=== PATIENT | male | born 1985 | race Caucasian/White ===

== ENCOUNTER 2021-12-02 13:58 | Inpatient (IN) | payer SELFPAY ==
[~2021-12-02] VITALS: Ht 180.3 cm; Wt 123.8 kg
[2021-12-02 14:11] VITALS: BP 148/78
[2021-12-02] MEDS ORDERED: NACL 0.9% 1,000 ML IV ONE (14:25)
[2021-12-02] MEDS ORDERED: ONDANSETRON 4 MG/2 ML VIAL IVP ONE ×2 (14:25→17:00)
[2021-12-02] MEDS ORDERED: MORPHINE SULFATE 4 MG/ML SYR IVP ONE ×2 (14:25→16:20)
--- NOTE | 2021-12-02 14:38 | NUR ---
MD Jose Mendez [phone]
--- NOTE | 2021-12-02 15:02 | NUR ---
35 Y/O M BIB SELF C/O SHARP RU ABD PAIN SINCE THIS MORNING. PT ALSO HAD NAUSEA AND DIARRHEA ON AND OFF SINCE TUESDAY. DENIES ANYONE ELSE SICK AT HOME. DENIES TAKING MEDS FOR PAIN. NKA OR PMH
--- NOTE | 2021-12-02 15:04 | NUR ---
LAB AT BEDSIDE.
--- NOTE | 2021-12-02 15:17 | NUR ---
ULTRASOUND AT BEDSIDE.
[2021-12-02 15:27] LABS: ALBUMIN 3.8 g/dL (3.4-5.0); CARBON DIOXIDE 33.1 mmol/L (21-32); CREATININE 0.8 mg/dL (0.6-1.3); POTASSIUM 4.1 mmol/L (3.5-5.1); TOTAL BILIRUBIN 0.8 mg/dL (0.0-1.0)
[2021-12-02 15:37] LABS: BASOPHILS % (AUTO) 0.1 % (0.0-2.0); EOSINOPHILS % (AUTO) 0.2 % (0.0-4.0); HEMATOCRIT 44.2 % (36-52); HEMOGLOBIN 15.6 g/dL (12.0-18.0); LYMPHOCYTES # (AUTO) 0.9 K/uL (2.0-11.5); LYMPHOCYTES % (AUTO) 10.9 % (20.5-51.1); MEAN CORPUSCULAR HEMOGLOBIN 32 pg (27-31); MEAN CORPUSCULAR HGB CONC 35 g/dL (33-37); MEAN CORPUSCULAR VOLUME 90.8 fL (80-94); MONOCYTES # (AUTO) 0.5 K/uL (0.8-1.0); MONOCYTES % (AUTO) 6.1 % (1.7-9.3); NEUTROPHILS # (AUTO) 6.9 K/uL (1.8-7.7); NEUTROPHILS % (AUTO) 82.7 % (42.2-75.2); PLATELET COUNT (AUTO) 171 K/uL (140-450); RED BLOOD CELL COUNT(AUTO) 4.86 MIL/uL (4.20-6.10); RED CELL DISTRIBUTION WIDTH 12.8 % (11.6-13.7); WHITE BLOOD COUNT (AUTO) 8.3 K/uL (4.8-10.8)
[2021-12-02] MEDS ORDERED: HYDROmorphone PFS 2 MG/ML SYR IVP ONE (17:00)
--- NOTE | 2021-12-02 17:45 | NUR ---
MARGARET SWABED AND WALKED TO THE LAB.
[2021-12-02] MEDS ORDERED: NACL 0.9% 1,000 ML IV SCH (18:00)
--- NOTE | 2021-12-02 18:08 | NUR ---
SHILO RIVERA CALLED MARGARET NOT READY, CHRISTIANNE NOT RECEVIVED IN [facility]
[2021-12-02] MEDS ORDERED: MORPHINE SULFATE 2 MG/ML SYR IVP PRN (18:15)
[2021-12-02] MEDS ORDERED: cefTRIAXone 1,000 MG VIAL ONE (18:25)
--- NOTE | 2021-12-02 19:22 | NUR ---
GAVE REPORT TO SONIA LAO.
--- NOTE | 2021-12-02 19:27 | NUR ---
PT IS AWAKE IS ALERT. REPORTS MILD PAIN. ALL NEEDS MET AT THIS TIME.
[2021-12-02] MEDS: MORPHINE SULFATE 4 MG/ML SYR IVP PRN (19:51)
--- NOTE | 2021-12-02 19:52 | NUR ---
PT STATED HE HAD 8/10 ABD PAIN. PT MEDICATED PER ORDERS. ALL NEEDS MET AT THIS TIME.
--- NOTE | 2021-12-02 20:19 | NUR ---
PT STATES PAIN IS 7/10, SAYS THIS IS TOLERABLE FOR HIM.
--- NOTE | 2021-12-02 20:39 | NUR ---
REPORT GIVEN TO SHILO ESCOBAR.
[2021-12-02] MEDS ORDERED: ONDANSETRON 4 MG/2 ML VIAL IVP PRN (20:40)
[2021-12-02] MEDS: LACTATED RINGERS 1,000 ML IV SCH (20:45)
--- NOTE | 2021-12-02 20:45 | NUR ---
Patient will be admitted to care of TIFFANY. Admited to [facility]. Will go to room 111B. Belongings list completed. Report to SHILO ESCOBAR.
[2021-12-02 20:50] VITALS: BP 133/77
--- NOTE | 2021-12-02 20:50 | NUR ---
RECEIVED REPORT FROM ER NURSE. PT AWAKE, ALERT AND ORIENTED. ON ROOM AIR, BREATHING EQUAL AND UNLABORED. SKIN, WARM ,DRY AND INTACT. IV ON L AC G20, INFUSING WELL. PT AMBULATORY, ABLE TO MAKE NEEDS KNOWN. MRSA SWAB DONE. ORIENTED TO ROOM AND CALL LIGHT. ALL PRECAUTIONS IN PLACE. WILL CONTINUE TO MONITOR.
[2021-12-02] MEDS: PIPERACILLIN/TAZOBACTAM 3.375 GM in DEXTROSE 5% 50 ML IV SCH (21:00)
--- NOTE | 2021-12-02 21:30 | NUR ---
SCHEDULED MEDICATION GIVEN. PT TOLERATED WELL. WILL CONTINUE TO MONITOR.
[2021-12-02 21:31] LABS: PROTHROMBIN TIME 9.9 secs (10.8-13.4)
[2021-12-02] MEDS ORDERED: PIPERACILLIN/TAZOBACTAM 3.375 GM VIAL IV ONE (21:37)
[2021-12-03] MEDS: MORPHINE SULFATE 4 MG/ML SYR IVP PRN ×2 (02:07→08:13)
--- NOTE | 2021-12-03 02:10 | NUR ---
PT COMPLAINED 10/10 RUQ PAIN. PRN MORPHINE GIVEN. WILL CONTINUE TO MONITOR.
--- NOTE | 2021-12-03 03:42 | NUR ---
PT ASLEEP. BREATHING EQUAL AND UNLABORED WITH NO DISTRESS NOTED. ALL PRECAUTIONS IN PLACE. WILL CONTINUE TO MONITOR.
[2021-12-03 04:00] VITALS: BP 133/69
[2021-12-03] MEDS ORDERED: PIPERACILLIN/TAZOBACTAM 3.375 GM VIAL IV ONE (04:04)
[2021-12-03] MEDS: PIPERACILLIN/TAZOBACTAM 3.375 GM in DEXTROSE 5% 50 ML IV SCH ×3 (04:36→23:00)
[2021-12-03] MEDS: LACTATED RINGERS 1,000 ML IV SCH ×2 (04:45→12:45)
--- NOTE | 2021-12-03 04:45 | NUR ---
SCHEDULED MEDICATION GIVEN. PT TOLERATED WELL. WILL CONTINUE TO MONITOR.
--- NOTE | 2021-12-03 07:00 | NUR ---
PT IS STABLE.NO ACUTE EVENTS THROUGHOUT THE NIGHT. ALL NEEDS MET. NO S/SX OF DISTRESS AT THIS TIME. NO COMPLAINS OF PAIN. ALL PRECAUTIONS IN PLACE. CALL LIGHT WITHIN REACH. WILL ENDORSE TO AM SHIFT NURSE.
[2021-12-03 07:23] LABS: ANION GAP 8.9 (8-16); CARBON DIOXIDE 28.4 mmol/L (21-32); CREATININE 0.8 mg/dL (0.6-1.3); POTASSIUM 3.3 mmol/L (3.5-5.1)
[2021-12-03 07:36] LABS: BASOPHILS % (AUTO) 0.2 % (0.0-2.0); EOSINOPHILS % (AUTO) 0.5 % (0.0-4.0); HEMATOCRIT 41.2 % (36-52); HEMOGLOBIN 14.8 g/dL (12.0-18.0); LYMPHOCYTES # (AUTO) 1.5 K/uL (2.0-11.5); LYMPHOCYTES % (AUTO) 17.9 % (20.5-51.1); MEAN CORPUSCULAR HEMOGLOBIN 32 pg (27-31); MEAN CORPUSCULAR HGB CONC 36 g/dL (33-37); MEAN CORPUSCULAR VOLUME 90.3 fL (80-94); NEUTROPHILS % (AUTO) 69.4 % (42.2-75.2); PLATELET COUNT (AUTO) 154 K/uL (140-450); RED BLOOD CELL COUNT(AUTO) 4.56 MIL/uL (4.20-6.10); RED CELL DISTRIBUTION WIDTH 12.8 % (11.6-13.7); WHITE BLOOD COUNT (AUTO) 8.6 K/uL (4.8-10.8)
--- NOTE | 2021-12-03 07:55 | NUR ---
RECEIVED PT CARE AND REPORT FROM LUZ LAO. PT IS RESTING IN BED SEMI-FOWLERS, A&OX4. NO VISIBLE S/S OF DISTRESS OR DISCOMFORT. DENIES SOB. COMPLAINS OF PAIN 7/10 IN UPPER RIGHT QUADRANT. WILL MEDICATE ORDERED. CALL LIGHT WITHIN REACH, ALL NEEDS MET AT THIS TIME.
[2021-12-03] MEDS ORDERED: KCL 20 MEQ/WATER INJ PREMIX 200 ML IV SCH (10:00)
--- NOTE | 2021-12-03 10:10 | NUR ---
PATIENT HAS BEEN SCREENED AND CATEGORIZED LOW NUTRITION RISK. PATIENT WILL BE SEEN WITHIN 7 DAYS OF ADMISSION. 12/09/[address]
--- NOTE | 2021-12-03 11:10 | NUR ---
BEGAN TO ADMINISTER K-RIDER. LESS THAN 20 MINUTES BEFORE STARTING OF MED, PT COMPLAINED OF SHARP PAIN AND NUMBNESS IN ARM ONCE MED WAS STARTED. STOPPED K-RIDER ADMINISTRATION. ORDERED K-RIDER WITH LIDOCAINE TO HELP WITH PAIN.
[2021-12-03] MEDS ORDERED: POTASSIUM CHLORIDE 40 MEQ, LIDOCAINE MPF 1% 25 MG in NACL 0.9% 250 ML IV SCH (12:00)
--- NOTE | 2021-12-03 13:42 | NUR ---
DC PLANNING: THE PATIENT ADMITTED WITH C/O RUQ PAIN, H/O GALLSTONES. CT ABDOMEN SHOWS ACUTE CHOLECYSTITIS, PATIENT EVALUATED BY SURGEON, PLAN FOR LAP LON. CM SPOKE WITH THE PATIENT AND HIS AT BEDSIDE AND CONFIRMED HIS ADDRESS AND PHONE NUMBER. THE PATIENT LIVES IN A SINGLE STORY HOUSE WITH HIS AND IS INDEPENDENT IN ALL ACTIVITIES. 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 CM WILL FOLLOW.
[2021-12-03 16:00] VITALS: BP 155/76
[2021-12-03] MEDS ORDERED: DOCUSATE SODIUM 100 MG GELCAP PO PRN (16:10)
[2021-12-03] MEDS ORDERED: MAG SULF 2000 MG/WATER PREMIX 50 ML IV PRN (16:10)
[2021-12-03] MEDS ORDERED: ACETAMINOPHEN 325 MG TAB PO PRN (16:10)
[2021-12-03] MEDS ORDERED: ZOLPIDEM 5 MG TAB PO PRN (16:10)
[2021-12-03] MEDS ORDERED: POTASSIUM CHLORIDE 10 MEQ TABER PO PRN (16:10)
[2021-12-03] MEDS ORDERED: ONDANSETRON 4 MG/2 ML VIAL IM/IVP PRN (16:10)
[2021-12-03] MEDS ORDERED: LORazepam 1 MG TAB PO PRN (16:10)
[2021-12-03 16:46] LABS: PROTHROMBIN TIME 10.4 secs (10.8-13.4)
[2021-12-03 18:01] LABS: APPEARANCE,URINE CLEAR (CLEAR); BILIRUBIN,URINE NEGATIVE (NEGATIVE); BLOOD, URINE NEGATIVE (NEGATIVE); COLOR,URINE YELLOW (YELLOW); LEUKOCYTE ESTERASE ,URINE NEGATIVE (NEGATIVE); NITRITE, URINE NEGATIVE (NEGATIVE); UGLUCOSE NEGATIVE (NEGATIVE)
[2021-12-03 20:34] LABS: BARBITURATE, URINE NEGATIVE ng/ml (NEG <=200); BENZODIAZEPINE, URINE NEGATIVE ng/mL (NEG <=200); CANNABINOID, URINE NEGATIVE ng/mL (NEG <=50); COCAINE, URINE NEGATIVE ng/mL (NEG <=300); OPIATE, URINE POSITIVE ng/mL (NEG <=2000); PHENCYCLIDINE SCREEN,URINE NEGATIVE ng/mL (NEG <=25)
[2021-12-03 22:54] LABS: ALBUMIN 3.2 g/dL (3.4-5.0); ANION GAP 13.8 (8-16); CARBON DIOXIDE 24.6 mmol/L (21-32); CREATININE 0.8 mg/dL (0.6-1.3); POTASSIUM 3.4 mmol/L (3.5-5.1)
[2021-12-04] VITALS: BP 112/60
--- NOTE | 2021-12-04 01:59 | NUR ---
PATIENT ALERT X4 NO C/O OF PAIN WENT TO NUCULAR FOR HYDA SCAN LEFT FLOOR 2044 WAS GIVEN MORPHINE 2 MG IVP AT 2114. PATIENT RETURN TO ROOM AT 2154. PATIENT GIVEN IVPB LATE DO TO NOT IN ROOM. PATIENT IS M/S PATIENT.ON ROOM AIR SAT 99%. LUNGS DIMINISH RECEIVED ROCEPHIN 20940 MG IVPB AT 2200, ZOSYN 3.375 MG AT 2300. L/R INFUSING AT 125 HOUR. IV SITE IN LEFT UPPER ARM PATENT. NO SIGNS OF ACUTE DISTRESS.
[2021-12-04] MEDS: LACTATED RINGERS 1,000 ML IV SCH ×3 (04:45→11:59)
[2021-12-04] MEDS: PIPERACILLIN/TAZOBACTAM 3.375 GM in DEXTROSE 5% 50 ML IV SCH ×3 (05:00→21:00)
[2021-12-04 05:34] LABS: BASOPHILS % (AUTO) 0.3 % (0.0-2.0); EOSINOPHILS # (AUTO) 0.1 K/uL (0-0.4); EOSINOPHILS % (AUTO) 1.2 % (0.0-4.0); HEMATOCRIT 41.5 % (36-52); HEMOGLOBIN 14.7 g/dL (12.0-18.0); LYMPHOCYTES # (AUTO) 1.6 K/uL (2.0-11.5); LYMPHOCYTES % (AUTO) 17.8 % (20.5-51.1); MEAN CORPUSCULAR HEMOGLOBIN 32 pg (27-31); MEAN CORPUSCULAR HGB CONC 36 g/dL (33-37); MEAN CORPUSCULAR VOLUME 89.9 fL (80-94); MONOCYTES # (AUTO) 0.9 K/uL (0.8-1.0); MONOCYTES % (AUTO) 10.3 % (1.7-9.3); NEUTROPHILS # (AUTO) 6.5 K/uL (1.8-7.7); NEUTROPHILS % (AUTO) 70.4 % (42.2-75.2); PLATELET COUNT (AUTO) 171 K/uL (140-450); RED BLOOD CELL COUNT(AUTO) 4.62 MIL/uL (4.20-6.10); RED CELL DISTRIBUTION WIDTH 12.9 % (11.6-13.7); WHITE BLOOD COUNT (AUTO) 9.2 K/uL (4.8-10.8)
[2021-12-04 05:46] LABS: ANION GAP 9.9 (8-16); CARBON DIOXIDE 28.7 mmol/L (21-32); CREATININE 0.8 mg/dL (0.6-1.3); POTASSIUM 3.6 mmol/L (3.5-5.1)
[2021-12-04 06:32] LABS: CHOL/HDL RATIO 3.1 (1-4.5); MAGNESIUM 1.7 mg/dL (1.8-2.4); PHOSPHORUS 2.8 mg/dL (2.5-4.9)
[2021-12-04 07:08] LABS: T4 (THYROXINE) 9.8 ug/dL (4.5-12.0)
--- NOTE | 2021-12-04 07:45 | NUR ---
RECEIVED PT FROM ANKIT LAO. PT A/O X4. ABLE TO MAKE NEEDS KNOWN. NO SOB OR RESPIRATORY DISTRESS. ON RA. LAC #20 WITH LR @ 125 ML/HR. PT OFF TO CHOLECYSTECTOMY VIA BED. NEEDS ALL MET AT THIS TIME. SAFETY MEASURES IN PLACE. WILL CONTINUE TO MONITOR CLOSELY.
[2021-12-04] MEDS ORDERED: BUPIVACAINE-MPF 0.25% 30 ML VIAL INJ ONE (07:49)
[2021-12-04 08:00] VITALS: BP 126/74
[2021-12-04] MEDS ORDERED: PROPOFOL 200 MG/20 ML VIAL IV ONE ×2 (08:16)
[2021-12-04] MEDS ORDERED: SUCCINYLCHOLINE CHLORIDE 200 MG/10 ML VIAL IVP ONE (08:16)
[2021-12-04] MEDS ORDERED: ROCURONIUM 50 MG/5 ML VIAL IV ONE ×2 (08:16)
[2021-12-04] MEDS ORDERED: ONDANSETRON 4 MG/2 ML VIAL ONE (08:45)
[2021-12-04] MEDS ORDERED: KETOROLAC 30 MG/ML VIAL ONE (08:45)
[2021-12-04] MEDS ORDERED: ePHEDrine 50 MG/ML VIAL ONE (08:52)
[2021-12-04] MEDS ORDERED: NEOSTIGMINE 1:1000 10 MG/10 ML VIAL ONE (09:53)
[2021-12-04] MEDS ORDERED: GLYCOPYRROLATE 0.2 MG/ML VIAL ONE ×5 (09:53)
[2021-12-04] MEDS ORDERED: HYDROcodone/APAP 5/325 MG 1 TAB TAB PO PRN (10:05)
[2021-12-04] MEDS ORDERED: HYDROmorphone 1 MG/ML AMP IVP PRN (10:20)
[2021-12-04] MEDS ORDERED: METOCLOPRAMIDE 10 MG/2 ML INJ VIAL IVP PRN (10:20)
[2021-12-04] MEDS ORDERED: LABETALOL 20 MG/4 ML VIAL IVP PRN (10:20)
[2021-12-04] MEDS ORDERED: LACTATED RINGERS 1,000 ML IV SCH (10:20)
[2021-12-04] MEDS ORDERED: hydrALAZINE 20 MG/ML VIAL IVP PRN (10:25)
--- NOTE | 2021-12-04 11:30 | NUR ---
PT BACK FROM SURGERY. PT AWAKE AND ALERT. 4 INCISION SITE NOTED ON ABDOMEN. NO ACTIVE BLEEDING, NO S/S OF INFECTION. SEE EMAR FOR PAIN MEDICATION ADMINISTRATION. FAMILY AT BEDSIDE. NEEDS ALL MET AT THIS TIME. SAFETY MEASURES IN PLACE. WILL CONTINUE TO MONITOR.
[2021-12-04] MEDS: MORPHINE SULFATE 4 MG/ML SYR IVP PRN ×2 (11:31→19:31)
--- NOTE | 2021-12-04 12:30 | NUR ---
MD ORDER TO DISCONTINUE LACTATED RINGERS.
[2021-12-04 16:00] VITALS: BP 128/72
--- NOTE | 2021-12-04 19:24 | NUR ---
PT STABLE, REPORT GIVEN TO NIGHTSHIFT RN FOR CONTINUITY OF CARE.
--- NOTE | 2021-12-04 19:30 | NUR ---
C/O PAIN - BP 128/ 82 , NV 82 , 02 SAT 98 % - FULLY AWAKE - WILL MEDICATE .
--- NOTE | 2021-12-04 22:00 | NUR ---
VOIDED , PER PT HE VOIDED FREELY .
[2021-12-05] VITALS: BP 120/78
--- NOTE | 2021-12-05 00:33 | NUR ---
SLEEPING , NO S/SX OF ACUTE DISTRESS NOTED AT THIS TIME , CALL LIGHT WITHIN REACH .
--- NOTE | 2021-12-05 04:00 | NUR ---
no complain made .
[2021-12-05] MEDS: PIPERACILLIN/TAZOBACTAM 3.375 GM in DEXTROSE 5% 50 ML IV SCH ×3 (05:43→21:42)
[2021-12-05 07:07] LABS: BASOPHILS % (AUTO) 0.1 % (0.0-2.0); EOSINOPHILS % (AUTO) 0.1 % (0.0-4.0); HEMATOCRIT 41.6 % (36-52); HEMOGLOBIN 14.6 g/dL (12.0-18.0); LYMPHOCYTES # (AUTO) 0.7 K/uL (2.0-11.5); LYMPHOCYTES % (AUTO) 8.5 % (20.5-51.1); MEAN CORPUSCULAR HEMOGLOBIN 32 pg (27-31); MEAN CORPUSCULAR HGB CONC 35 g/dL (33-37); MONOCYTES # (AUTO) 0.9 K/uL (0.8-1.0); NEUTROPHILS % (AUTO) 81.3 % (42.2-75.2); PLATELET COUNT (AUTO) 198 K/uL (140-450); RED BLOOD CELL COUNT(AUTO) 4.62 MIL/uL (4.20-6.10); WHITE BLOOD COUNT (AUTO) 8.6 K/uL (4.8-10.8)
--- NOTE | 2021-12-05 07:30 | NUR ---
RECEIVED REPORT FROM WATCH PARTS GRINDER. PT RESTING ON BED, ORIENTED AND ALERT X4, NO ACUTE DISTRESS NOTED AT THIS TIME. PT HAS LEFT AC IV ACCESS WITH 20 G, INTACT AND PATENT AT THIS TIME. ALL SAFETY MEASURE IN PLACE, CALL LIGHT WITHIN REACH, WILL CONTINUE TO MONITOR.
[2021-12-05 07:31] LABS: ALBUMIN 3.2 g/dL (3.4-5.0); ANION GAP 11.1 (8-16); CARBON DIOXIDE 28.7 mmol/L (21-32); CREATININE 0.7 mg/dL (0.6-1.3); POTASSIUM 3.8 mmol/L (3.5-5.1); TOTAL BILIRUBIN 2.2 mg/dL (0.0-1.0)
[2021-12-05 07:37] LABS: PHOSPHORUS 3.5 mg/dL (2.5-4.9)
--- NOTE | 2021-12-05 07:40 | NUR ---
RECEIVED REPORT FROM FINANCIAL ANALYSIS CONSULTANT NURSE FOR CONTINUITY OF CARE. PT IS AWAKE. A&O4, ABLE TO COMMUNICATE NEEDS. RESPIRATIONS EVEN AND UNLABORED ON ROOM AIR. NO DISTRESS NOTED. NO COMPLAINTS OF PAIN. IV SITE ON LAC 20G, SL. SKIN IS WARM, DRY AND INTACT, EXCEPT FOR 4 SURGICAL WOUNDS ON THE ABD AREA. CALL LIGHT WITHIN REACH. SAFETY MEASURES IN PLACE. WILL CONTINUE TO MONITOR. PT WILL BE ASSIGNED TO ORIENTEE SHILO NGUYEN WITH MY SUPERVISION.
[2021-12-05 08:00] VITALS: BP 126/63
--- NOTE | 2021-12-05 09:25 | NUR ---
PT RESTING ON BED, RESPIRATION EVEN, UNLABORED, NO ACUTE DISTRESS NOTED AT THIS TIME, ALL SAFETY MEASURE IN PLACE, CALL LIGHT WITHIN REACH, WILL CONTINUE TO MONITOR.
--- NOTE | 2021-12-05 10:25 | NUR ---
SPOKE TO DR LEMONS ORDERED FULL LIQUID DIET AND GI CONSULT, DUE TO ELEVATED LIVER PANEL. DR AVILA MADE AWARE.
--- NOTE | 2021-12-05 11:03 | NUR ---
NOTIFIED DR MAI SIM REGARDING GI CONSULT DUE TO ELEVATED LIVER PANEL. WAITING RESPONSE
--- NOTE | 2021-12-05 12:46 | NUR ---
PT C/O PAIN 6/10 ON ABD AREA, OFFERED NORCO PER MD ORDER, WILL CONTINUE TO MONITOR.
--- NOTE | 2021-12-05 13:40 | NUR ---
SPOKE TO DR CHAUDHARI. DR ORDERED TO PUT PT ON NPO, START WITH D5 NS AT 70ML/HR FOR 24 HRS. PT FOR ERCP PAUL MORNING.
--- NOTE | 2021-12-05 14:05 | NUR ---
IV LINE LEAKING, REMOVED IV CATHETER INTACT. INSERT NEW IV ON RIGHT FOREARM WITH 22G, INTACT AND PATENT. PT TOLERATED WELL, WILL CONTINUE TO MONITOR.
[2021-12-05] MEDS: DEXT 5% /NACL 0.9% 1,000 ML IV SCH (14:44)
[2021-12-05 16:00] VITALS: BP 108/67
--- NOTE | 2021-12-05 19:45 | NUR ---
GAVE REPORT TO BOXING AND PRESSING SUPERVISOR NURSE FOR CONTINUITY OF CARE. ALL NEEDS MET THROUGHOUT SHIFT. PT IS STABLE.
--- NOTE | 2021-12-05 19:46 | NUR ---
[facility] PATIENT WAS STABLE DURING SHIFT REPORT. PATIENT DENIED ANY PAIN AT THIS TIME. NO NOTED S/SX OF PAIN/DISCOMFORT AT THIS TIME. P/S INCISION ARE CLEAN AND DRY. NO NOTED DRAINAGE. AIR TO DRY NO NOTED TREATMENT. CALL LIGHT WITHIN REACH AND ENCOURAGED TO USE FOR ALL NEEDS AND WANTS. [email or web address]
[2021-12-05 19:52] VITALS: BP 149/102
[2021-12-05 20:00] VITALS: BP 121/78
--- NOTE | 2021-12-05 20:00 | NUR ---
REVIEWED PLAN OF CARE WITH ERMA SANTANA LVN . [email or web address]
--- NOTE | 2021-12-05 21:49 | NUR ---
SPOKE WIT Claus ELLIS FOR NEW LAB ORDERS FOR TOMORROWS ANTICIPATED PROCEDURE. PATIENT WAS MADE AWARE OF ANTICIPATED PROCEDURE TO BE A 0800 TOMORROW. PATIENT UNDERSTOOD AND AGREED. PATIENT DENIED ANY PAIN AT THIS TIME. NO NOTED S/SX OF PAIN/DISCOMFORT AT THIS TIME. P/S INCISION ARE CLEAN AND DRY. NO NOTED DRAINAGE. AIR TO DRY NO NOTED TREATMENT. CALL LIGHT WITHIN REACH AND ENCOURAGED TO USE FOR ALL NEEDS AND WANTS. [email or web address]
--- NOTE | 2021-12-05 23:35 | NUR ---
PATIENT WAS NOTED RETURNING TO HIS BED FROM RESTROOM. ALERT AND ORIENTED AND READY FOR SLEEP. NO COMPLAINTS OF PAIN/DISCOMFORT. NO NOTED RESPIRATORY DISTRESS. CHEST EVEN AND BREATHING UNLABORED. SIDE RAIL UP X 2. NO NOTED DRAINAGE S/SX OF INFECTION TO INCISION TO ABDOMEN CALL LIGHT IN REACH AND ENCOURAGED PATIENT TO USE FOR ALL ASSISTANCE LIKE DISCONNECTING FROM IV POLE TO USE THE RESTROOM AND PAIN MANAGEMENT. PATIENT UNDERSTOOD AND AGREED. [email or web address].
--- NOTE | 2021-12-06 02:43 | NUR ---
PATIENT NOTED IN BED ASLEEP. NO S/SX OF PAIN. NO NOTED RESPIRATORY DISTRESS. CALL LIGHT IS WITHIN REACH FOR ASSISTANCE. [email or web address]
--- NOTE | 2021-12-06 03:38 | NUR ---
PATIENT NOTED IN BED ASLEEP. NO NOTED S/SX OF PAIN/DISCOMFORT. NO NOTED RESPIRATORY DISTRESS. SIDE RAILS UP X 2. CALL LIGHT WITH IN REACH FOR ASSISTANCE AND NEEDS. [email or web address]
[2021-12-06 04:00] VITALS: BP 112/66
[2021-12-06] MEDS: PIPERACILLIN/TAZOBACTAM 3.375 GM in DEXTROSE 5% 50 ML IV SCH ×2 (04:32→13:59)
[2021-12-06] MEDS: DEXT 5% /NACL 0.9% 1,000 ML IV SCH (04:32)
[2021-12-06 06:34] LABS: BASOPHILS % (AUTO) 0.4 % (0.0-2.0); EOSINOPHILS # (AUTO) 0.1 K/uL (0-0.4); EOSINOPHILS % (AUTO) 1.4 % (0.0-4.0); HEMATOCRIT 39.8 % (36-52); HEMOGLOBIN 14.1 g/dL (12.0-18.0); LYMPHOCYTES # (AUTO) 0.9 K/uL (2.0-11.5); LYMPHOCYTES % (AUTO) 13.2 % (20.5-51.1); MEAN CORPUSCULAR HEMOGLOBIN 32 pg (27-31); MEAN CORPUSCULAR HGB CONC 35 g/dL (33-37); MEAN CORPUSCULAR VOLUME 90.1 fL (80-94); MONOCYTES # (AUTO) 0.8 K/uL (0.8-1.0); MONOCYTES % (AUTO) 11.3 % (1.7-9.3); NEUTROPHILS # (AUTO) 5.3 K/uL (1.8-7.7); NEUTROPHILS % (AUTO) 73.7 % (42.2-75.2); PLATELET COUNT (AUTO) 202 K/uL (140-450); RED BLOOD CELL COUNT(AUTO) 4.42 MIL/uL (4.20-6.10); RED CELL DISTRIBUTION WIDTH 13.4 % (11.6-13.7); WHITE BLOOD COUNT (AUTO) 7.2 K/uL (4.8-10.8)
[2021-12-06 06:39] LABS: ANION GAP 8.3 (8-16); CARBON DIOXIDE 29.1 mmol/L (21-32); CREATININE 0.8 mg/dL (0.6-1.3); POTASSIUM 3.4 mmol/L (3.5-5.1)
[2021-12-06 06:48] LABS: CHOL/HDL RATIO 3.5 (1-4.5)
[2021-12-06] MEDS ORDERED: fentaNYL citrate 0.05 MG/ML VIAL ONE (07:00)
[2021-12-06] MEDS ORDERED: SEVOFLURANE 250 ML BTL INH ONE (07:00)
--- NOTE | 2021-12-06 07:38 | NUR ---
[facility], PATIENT WAS ASLEEP AND STABLE AT CHANGE OF SHIFT. [email or web address]
--- NOTE | 2021-12-06 07:39 | NUR ---
RECEIVED REPORT FROM STATUE MAKER NURSE FOR CONTINUITY OF CARE. PT IS AWAKE. A&O4, ABLE TO COMMUNICATE NEEDS. RESPIRATIONS EVEN AND UNLABORED ON ROOM AIR. NO DISTRESS NOTED. NO COMPLAINTS OF PAIN. IV SITE ON RFA 22G, RUNNING D5 NS AT 70 ML/HR. SKIN IS WARM, DRY AND INTACT, EXCEPT FOR 4 SURGICAL WOUNDS ON THE ABD AREA. REMINDED PT FOR THE ERCP SCHED AT 8AM AND THAT HE IS STILL ON NPO. PT VERBALIZED UNDERSTANDING. CALL LIGHT WITHIN REACH. SAFETY MEASURES IN PLACE. WILL CONTINUE TO MONITOR.
--- NOTE | 2021-12-06 07:55 | NUR ---
OR NURSE AT THE UNIT. WHEELED PT FROM HIS ROOM TO OR. PT FOR ERCP. PT IS STABLE.
[2021-12-06] MEDS ORDERED: PROPOFOL 200 MG/20 ML VIAL IV ONE ×2 (10:03)
[2021-12-06] MEDS ORDERED: SUCCINYLCHOLINE CHLORIDE 200 MG/10 ML VIAL IVP ONE (10:03)
[2021-12-06] MEDS ORDERED: KETOROLAC 30 MG/ML VIAL ONE (10:10)
[2021-12-06] MEDS ORDERED: ONDANSETRON 4 MG/2 ML VIAL ONE ×2 (10:11)
[2021-12-06] MEDS ORDERED: METOCLOPRAMIDE 10 MG/2 ML INJ VIAL IVP PRN (10:34)
[2021-12-06] MEDS ORDERED: HYDROmorphone 1 MG/ML AMP IVP PRN (10:35)
[2021-12-06] MEDS ORDERED: LACTATED RINGERS 1,000 ML IV SCH (10:35)
[2021-12-06] MEDS ORDERED: LABETALOL 20 MG/4 ML VIAL IVP PRN (10:35)
[2021-12-06] MEDS ORDERED: hydrALAZINE 20 MG/ML VIAL IVP PRN (10:35)
--- NOTE | 2021-12-06 11:00 | NUR ---
PT BACK FROM OR. V/S 115/71, 76, 99.2, 18, 99. PT IS AWAKE, ABLE TO COMMUNICATE NEEDS, WITH FAMILY MEMBER AT BEDSIDE.
--- NOTE | 2021-12-06 12:48 | NUR ---
INFORMED DR LEMONS OF THE ERCP RESULT.
--- NOTE | 2021-12-06 14:45 | NUR ---
DID ROUNDS. PT IN BED, SLEEPING. RESPIRATIONS EVEN AND UNLABORED. FAMILY MEMBER AT BEDSIDE. CALL LIGHT WITHIN REACH. SAFETY PRECAUTIONS IN PLACE. WILL CONTINUE TO MONITOR.
[2021-12-06 16:00] VITALS: BP 103/62
[2021-12-06] MEDS ORDERED: METR-520 PO (16:41)
[2021-12-06] MEDS ORDERED: CIPR500T4 PO (16:41)
[2021-12-06] MEDS ORDERED: LACT1.4C PO (16:42)
--- NOTE | 2021-12-06 16:50 | NUR ---
PT IN BED, RESTING. NO COMPLAINTS OF PAIN. NO DISTRESS NOTED. V/S STABLE. POTASSIUM 3.4. KCL GIVEN. PT TOLERATED FULL LIQUID DIET. INFORMED PT ABOUT HIS DC ORDER. PT VERBALIZED UNDERSTANDING, STATED THAT HIS IS THE ONE TO PICK HIM UP.
[2021-12-06 17:07] VITALS: BP 103/62
--- NOTE | 2021-12-06 18:43 | NUR ---
PT DC HOME. PT WALKED OUT BY THE NURSE TO FRONT LOBBY, FAMILY MEMBER WAITING OUTSIDE. DC PAPERS DISCUSSED WITH THE PT. PT VERBALIZED UNDERSTANDING. PHOTO TAKEN ON ABD INCISION SITES. REMOVED IV CATHETER WAS INTACT. ID WRIST BAND REMOVED. ALL PERSONAL BELONGINGS TAKEN UPON DC. PT IS STABLE.
== END 2021-12-06 18:45 | disposition home or self-care (01) | DRG 418 ==
LOC: MED 13:58 → MMU 18:05 → MTU 18:05
PROC: 0FT44ZZ Resection of Gallbladder, Percutaneous Endoscopic Approach (ICD-10-PCS; principal; 2021-12-04 07:30)
DX: K80.00 Calculus of gallbladder with acute cholecystitis without obstruction (principal); E44.0 Moderate protein-calorie malnutrition; Z20.822 Contact with and (suspected) exposure to COVID-19; E66.9 Obesity, unspecified; E87.6 Hypokalemia; E86.0 Dehydration; K57.30 Diverticulosis of large intestine without perforation or abscess without bleeding; R74.01 Elevation of levels of liver transaminase levels; J43.9 Emphysema, unspecified; E83.42 Hypomagnesemia; Z98.84 Bariatric surgery status; Z68.38 Body mass index [BMI] 38.0-38.9, adult; Z79.899 Other long term (current) drug therapy
CPT/HCPCS: 36415; 43260; 74150; 76705; 78445; 80048; 80053; 80305; 81003; 83036; 83690; 83735; 83880; 84100; 84134; 84436; 84443; 85025; 85610; 85730; 86886; 86900; 86901; 87081; 96361; 96374; 96375; 96376; 99285; C1769; J0330; J0696; J1170; J1885; J2001; J2270; J2405; J2543; J2704; J2710; J3010; J3475; J3480; J3490; J7030; J7060; Q0092; Q9967